=== PATIENT | male | born 1950 | race Caucasian/White ===

== ENCOUNTER 2020-01-13 10:03 | Outpatient (CLI) | payer MEDICARE, SELFPAY ==
--- NOTE | 2020-01-13 11:50 | ECG_ITS ---
Measurements Intervals [place] Rate: 60 P: 5 FL: 161 QRS: -14 QRSD: 68 T: 10 QT: 395 QTc: 396 Interpretive Statements SINUS RHYTHM BORDERLINE T WAVE ABNORMALITY- INFERIOR LEADS BASELINE ARTIFACT- I, II, III, AVR, AVL, AVF, V1-V3 BORDERLINE ECG Electronically Signed On 01-13-2020 12:10:03 CANCELING AND CUTTING CONTROL CLERK by Issac Long D.O.
[2020-01-13 12:29] LABS: Basophils Percent Auto 0.6 % (0.2-1.2); Eosinophils Absolute Auto 0.2 K/mm3 (0-0.3); Eosinophils Percent Auto 2.2 % (0-4.4); Hematocrit 47.5 % (42.0-52.0); Hemoglobin 15.9 g/dL (14.0-18.0); Immature Granulocyte Absolute 0.01 K/mm3 (0.00-0.031); Immature Granulocyte Percent A 0.1 % (0-0.5); Lymphocytes Absolute Auto 1.93 K/mm3 (0.9-3.2); Lymphocytes Percent Auto 28.1 % (18.3-44.2); Mean Corpuscular HGB Conc 33.5 g/dl (32-36); Mean Corpuscular Hemoglobin 31.2 pg (26-34); Mean Corpuscular Volume 93.1 fl (80-100); Mean Platelet Volume 10.6 fl (7.4-10.4); Monocytes Absolute Auto 0.5 K/mm3 (0.1-0.6); Monocytes Percent Auto 7.6 % (2.6-8.5); Neutrophils Absolute Auto 4.2 K/mm3 (1.3-6.7); Neutrophils Percent Auto 61.4 % (45.5-73.1); Platelet Count Result 160 k/mm3 (150-375); Red Cell Distribution Width 12.9 % (11.5-14.5); White Blood Count 6.9 K/mm3 (4.5-10.0)
[2020-01-13 12:30] LABS: Hemoglobin A1C 4.9 % (<5.7)
[2020-01-13 12:31] LABS: Albumin Level 4.5 g/dL (3.5-5.1); Estimated Glomerular Filt Rate 60; Glucose 87 mg/dL (75-110)
[2020-01-13 12:32] LABS: Urine Cotinine NEGATIVE
[2020-01-13 12:40] LABS: Partial Thromboplastin Time 36.2 SECONDS (22.3-36.8)
== END 2020-01-13 10:04 | disposition home or self-care (01) ==
LOC: ANHSURGERY 10:06
PROVIDERS: Anesthesiology; PCP Internal Medicine; Visit Provider Orthopaedic Surgery
DX: M17.0 Bilateral primary osteoarthritis of knee (principal); Z79.01 Long term (current) use of anticoagulants; Z01.818 Encounter for other preprocedural examination
CPT/HCPCS: 36415; 80307; 82040; 82565; 82947; 83036; 85025; 85610; 85730; 86850; 86900; 86901; 87081; 93005

== ENCOUNTER 2020-06-28 09:38 | Outpatient (CLI) | payer MEDICARE, SELFPAY ==
[2020-06-28 11:06] LABS: Basophils Percent Auto 0.3 % (0.2-1.2); Eosinophils Percent Auto 0.2 % (0-4.4); Hematocrit 48.3 % (42.0-52.0); Hemoglobin 15.7 g/dL (14.0-18.0); Immature Granulocyte Absolute 0.03 K/mm3 (0.00-0.031); Immature Granulocyte Percent A 0.5 % (0-0.5); Lymphocytes Absolute Auto 1.65 K/mm3 (0.9-3.2); Lymphocytes Percent Auto 26.7 % (18.3-44.2); Mean Corpuscular HGB Conc 32.5 g/dl (32-36); Mean Corpuscular Hemoglobin 29.8 pg (26-34); Mean Corpuscular Volume 91.7 fl (80-100); Mean Platelet Volume 10.1 fl (7.4-10.4); Monocytes Absolute Auto 0.6 K/mm3 (0.1-0.6); Monocytes Percent Auto 9.5 % (2.6-8.5); Neutrophils Absolute Auto 3.9 K/mm3 (1.3-6.7); Neutrophils Percent Auto 62.8 % (45.5-73.1); Platelet Count Result 150 k/mm3 (150-375); Red Blood Count 5.27 M/mm3 (4.6-6.20); Red Cell Distribution Width 13.5 % (11.5-14.5); White Blood Count 6.2 K/mm3 (4.5-10.0)
[2020-06-28 11:16] LABS: INR 1.7; Prothrombin Time 20.9 Seconds (11.1-14.7); Urine Cotinine NEGATIVE
[2020-06-28 11:17] LABS: Partial Thromboplastin Time 39.6 SECONDS (22.3-36.8)
[2020-06-28 11:19] LABS: Albumin Level 4.3 g/dL (3.5-5.1); Estimated Glomerular Filt Rate 46; Glucose 98 mg/dL (75-110)
[2020-06-28 11:20] LABS: Hemoglobin A1C 5.4 % (<5.7)
== END 2020-06-28 09:39 | disposition home or self-care (01) ==
LOC: ANHSURGERY 09:44
PROVIDERS: PCP Internal Medicine; Visit Provider Orthopaedic Surgery
DX: M17.12 Unilateral primary osteoarthritis, left knee (principal); Z01.818 Encounter for other preprocedural examination
CPT/HCPCS: 80307; 82040; 82565; 82947; 83036; 85025; 85610; 85730; 87081

== ENCOUNTER → 2020-08-11 02:40 | Outpatient (CLI) | payer MEDICARE, SELFPAY ==
[2020-08-11 18:16] LABS: SARS-CoV-2 RNA PCR Negative
== END ==
PROVIDERS: PCP Internal Medicine; Visit Provider Orthopaedic Surgery
DX: Z01.812 Encounter for preprocedural laboratory examination (principal); Z20.822 Contact with and (suspected) exposure to COVID-19
CPT/HCPCS: C9803; U0003; U0005

== ENCOUNTER 2020-08-14 00:35 | Day surgery (SDC) | payer MEDICARE, SELFPAY ==
[2020-01-13 10:31] VITALS: BMI 27.0
[2020-01-13 10:33] VITALS: BP 144/76; PULSE 63; RESP 16; TEMP 36.9; O2SAT 98
[2020-06-28 10:00] VITALS: BMI 27.1
[2020-06-28 10:48] VITALS: BP 142/70; PULSE 67; RESP 16; TEMP 37; O2SAT 98; BMI 27.1
--- NOTE | 2020-08-04 14:37 | PC.NURSE ---
08/04/20 PT STATES NO CHANGE IN HEALTH HX SINCE LAST INTERVIEW ON 06/28/20
[2020-08-14] VITALS (13 sets, daily range): BP systolic 122–159; BP diastolic 73–84; PULSE 68–90; RESP 10–18; TEMP 35.8–36.8; O2SAT 93–100; BMI 27.6
--- NOTE | ~2020-08-14 | XR_ITS ---
EXAMINATION: XR knee LT 2V DATE: 08/14/2020 12:25 INDICATION: Total left knee arthroplasty. Postop. TECHNIQUE: 2 views of left knee were obtained. COMPARISON: Left knee radiographs 08/02/2020 FINDINGS: There is a total left knee arthroplasty with patellar resurfacing in near-anatomic alignmen t. No fracture. There is gas in the knee joint and soft tissues, consistent with recent surgery. Ther e are loose bodies in a Hawley's cyst. IMPRESSION: 1. Total left knee arthroplasty in near-anatomic alignment. Reviewed, dictated and finalized at location A.
[2020-08-14] MEDS: LACTATED RINGERS 1,000 ML 30 ML IV CONT ×2 (08:05→12:09)
[2020-08-14] MEDS: TRANEXAMIC ACID 1,000MG/ISO100 1,000 MG/100 ML BAG 200 MG IVPB (08:15)
[2020-08-14] MEDS: ACETAMINOPHEN 500 MG TABLET 1000 MG PO ×3 (08:19→21:54)
--- NOTE | 2020-08-14 08:19 | WPDANESEPPF ---
Anes - Initial Pre Proc Eval Procedure: Operation Date: 08/14/20 09:30 Proposed Procedures p Left Total Knee Arthroplasty, Right Knee Injection - Jesus Franco MD Date/Time: 08/14/20 08:19 Surgeon: Jesus Franco MD Pre Op Diagnosis: Left Knee OA, Bilateral Knee OA Patient Data Age: 70 Gender: M Height: 1.78 m Weight: 85.8 kg Last Vital Signs Temp 37.0 C 06/28/20 10:48 Pulse 67 06/28/20 10:48 Resp 16 06/28/20 10:48 BP 142/70 H 06/28/20 10:48 Pulse Ox 98 06/28/20 10:48 Allergies Allergy/AdvReac Type Severity Reaction Status Date / Time simvastatin Allergy Unknown Joint Pain Verified 08/14/20 07:45 propranolol AdvReac Unknown Joint pain Verified 08/14/20 07:45 Home Medications Medication Instructions Recorded Confirmed Type omega 4-zlb-els-fish oil 300 1 cap PO DAILY 05/20/19 08/14/20 History mg-1,000 mg capsule acetaminophen 650 mg 650 mg PO Q12H PRN 07/21/19 08/04/20 History tablet,extended release antiarthritic combination no.2 900 900 mg PO DAILY 07/21/19 08/04/20 History mg tablet warfarin 5 mg tablet 7 mg PO DAILY tablet 01/11/20 08/14/20 History ascorbic acid (vitamin C) 1 g PO DAILY 01/13/20 08/14/20 History enoxaparin 40 mg SUBCUT BID 08/14/20 08/14/20 History Laboratory Tests 08/14/20 07:53 PT Pending INR Pending APTT Pending Patient hx anesthesia problems: none Family hx anesthesia problems: none [facility] Past Medical History Medical History Acute embolism and thrombosis of other specified deep vein of right lower extremity (~07/20/18) BMI 26.0-26.9,adult Degenerative arthritis of knee, bilateral Essential tremor (~02/13/16) History of PFTs (~11/21/17) Complete w/post bronchodilator spirometry History of squamous cell carcinoma Hx of pulmonary function tests (~12/22/17) Methacholine Challenge Osteoporosis Pulmonary embolism (~08/24/09) Varicose vein of leg (~12/11/16) Endovenous Laser Therapy Right leg Varicose vein of leg (~01/16/17) Left and Right leg Varicose vein of leg (~02/18/18) Endovenous Laser Therapy Right leg Surgical History Surgical History History of colonoscopy (~03/23/07) History of cystoscopy (~02/14/17) History of foot surgery (~06/14/13) Left hammertoe/bunion repair History of foot surgery (~12/31/13) Left hammertoe repair 4th and 5th digits History of left knee surgery (~11/24/01) Hawley's cyst and tear History of repair of right rotator cuff (~04/27/09) History of ultrasound guided needle biopsy (~10/24/14) Prostate S/P TURP 2020 Status post arthroscopic partial medial meniscectomy (~06/06/09) right knee Status post surgical removal of neoplasm of skin (~02/06/10) Squamous cell CA Left hand Status post surgical removal of neoplasm of skin (~10/17/15) Squamous cell CA Left arm Family History Family History Father , 12/18/1971 Age 48 No problems noted. Mother , 02/17/2010 Age 88 Alzheimer disease Social History Social History Smoking status: Never smoker Additional smoking assessment comments: DENIES ANY FORM OF TOBACCO USE Alcohol intake: current Alcohol use details: FEW DRINKS/YEAR Substance use: never Living arrangements: with family Additional living arrangements comments: - [place] Gender identity (if verbalized by the patient): Male Spiritual care concerns: No Agree to blood products: No Anes - Eval Final PreProcedure Day of Procedure 08/14/20 08:19 Patient weight: overweight Heart: regular rate and rhythm Lungs: clear to auscultation and normal air movement Airway: Mallampati scale class II Neurological: alert and oriented Last oral intake: >/= 8 hours ASA classification: III Emergent: no Anes
[2020-08-14 08:20] LABS: INR 0.9; Prothrombin Time 12.9 Seconds (11.1-14.7)
[2020-08-14 08:21] LABS: Partial Thromboplastin Time 27.3 SECONDS (22.3-36.8)
--- NOTE | 2020-08-14 08:26 | WPDANESPNB ---
Anes - Peripheral Nerve Block Date/Time: 08/14/20 08:26 I have discussed with the patient/family/POA the placement of a peripheral nerve block for post-operative pain management, including associated risks, benefits, complications, and side effects. Alternative methods of post-operative analgesia were detailed. Questions were solicited and answers provided to the satisfaction of the patient/family/POA. Time-Out: A pre-procedural Time-Out was completed immediately before starting the procedure and confirmed: Patient Identification, Site, Procedure, Patient Position and the Availability of Requisite Equipment. Clinical Indications: Acute post-operative pain management requested by the operative surgeon. Nerve Block Insertion Note Anes-nerve block: adductor canal left Patient position: supine Skin prep: chlorhexidine Needle: 22 gauge, stimulating, insulated echogenic needle. Needle length: 80 mm Technique: ultrasound Technique comment: in plane Injectate: bupivacaine 0.5% with epi 5 mcg/ml (30cc) Observations: tolerated well Complications: none Procedure start time:: 915 Procedure end time:: 920
--- NOTE | 2020-08-14 08:54 | WPDHPUPDATE1 ---
History and Physical Update Update Date/Time: 08/14/20 08:54 History and Physical has been reviewed, including an updated exam of the patient. There are NO changes in the patient's condition. Risks, benefits, and alternatives have been discussed and questions answered. Patient agrees to proceed with procedure.
[2020-08-14] MEDS: ceFAZolin 2 GM/D5W 50 ML 2 GM/50 ML BAG IVPB ×2 (09:37→16:23)
[2020-08-14] MEDS: BUPIVACAINE/EPINEPHRINE 0.25% 10 ML VIAL 60 ML INFILTRATE (10:38)
[2020-08-14] MEDS: TRANEXAMIC ACID 1,000 MG/10 ML AMPUL 1000 MG TOPICAL (10:38)
--- NOTE | 2020-08-14 11:12 | SUR.OPER ---
Dr. Franco made aware of 1 hour tourniquet time. An additional 30 minutes added for the procedure
--- NOTE | 2020-08-14 12:10 | P.OP_ITS ---
Procedure Note - Detailed Date of Procedure 08/14/20 Pre-op Diagnosis Bilateral Knee OA Post-op Diagnosis same Procedure Performed Left total knee replacement; injection right knee Surgeon Jesus Franco MD Incident Commander Ara Astorga Anesthesia general and local Indications See H&P Findings See operative note Description of Procedure The patient was identified and proper site identified. In the preop holding area the anesthesia team performed a left sub sartorial block after which the patient was taken to the operating room and transferred to the OR table positioning supine taking care to pad the torso and extremities. After general anesthetic induction and intubation a nonsterile tourniquet was placed high on the left thigh. While this was being done, the right knee was injected intra- articularly with 2 mL of 1% lidocaine and 20 mg of Kenalog without incident using sterile technique. The left lower extremity was prepped and draped in the usual sterile fashion. The extremity was exsanguinated and with the knee flexed tourniquet was inflated to 300 mmHg remaining up for approximately 71 minutes. An anterior midline incision was made and a mid vastus approach was used. Infra and suprapatellar fat pads were excised. Patella was resected leaving 15 mm thickness and prepared for the 34 thin, round three peg component. Using the intramedullary guide the distal femur was cut in the proper orientation for the size 65 femoral component. Using the extramedullary guide the tibia was cut perpendicular to the long axis protecting collateral ligaments and popliteal structures. It was sized to a 71. Flexion and extension gaps were balanced. Trial reduction was undertaken and the weight-bearing line was noted to passed through the center of the joint. Proximal tibia was drilled and punched in the proper orientation for the real component. Trial components were removed. The bone surfaces were washed with pulsatile lavage and dried. The real components were cemented simultaneously. The knee was held in extension and the patella held clamped until the cement had cured. Excess cement was removed from the joint. After trialing it was determined that the 11 mm insert gave full range of motion from 0-120 degrees of flexion and the patella tracked in the femoral groove with no lift-off. After final lavage the joint the real 11, insert was placed and secured with a locking bar. A Betadine and saline wash was placed into the wound and allowed to sit for approximately 3 minutes and then evacuated. Billy was sprinkled both within the joint and over the extensor mechanism once it had been closed. This was for hemostasis. Periarticular tissues were infiltrated with 60 cc of the arthroplasty solution. 1 g of tranexamic acid was left in the wound. The extensor mechanism was repaired with #2 Vicryl suture and 0 looped PDS suture. Subcu was reapproximated with three 0 Monocryl and two 0 strata fix with tissue adhesive for the skin. A sterile dres sing was applied. He tolerated the procedure well, was awakened and extubated, transferred to the bed and was taken to recovery area in stable condition. There were no known intraoperative complications. Perioperative antibiotics were administered. Estimated Blood Loss 150 Tourniquet Time 71 Drains No Packing No Pathology none sent Complications No immediate complications Condition stable Disposition PACU
--- NOTE | 2020-08-14 12:57 | SUR.PHASEI ---
[id number] sbar faxed floor notified
--- NOTE | 2020-08-14 13:52 | ADMGEN ---
This patient, Gómez Cole, was admitted to Medical Room 254-01. Patient/family oriented to hospital policies and general routines including ID bracelet, bed and alarms, visiting hours, pain management, procedures, bathroom and other care routines, personal items, smoking policy, room service/diet, and visiting hours. Information on how to activate the Rapid Response Team has been discussed. Patient/Family are encouraged to report perceived risks to care and to ask questions if they do not understand what they are told or what they should do.
[2020-08-14] MEDS: oxyCODONE HCL (*CRX) 5 MG TAB IR PO ×3 (14:34→21:54)
[2020-08-14] MEDS: SODIUM CHLORIDE 0.9% IV 1,000 ML 125 ML IV CONT (14:34)
[2020-08-14] MEDS: WARFARIN (*PBKC) 5 MG TABLET PO (18:36)
[2020-08-14] MEDS: DOCUSATE SODIUM 100 MG CAPSULE PO (18:36)
[2020-08-14] MEDS: WARFARIN (*PBKC) 2 MG TABLET PO (18:37)
[2020-08-14] MEDS: FAMOTIDINE 20 MG TABLET PO (21:54)
[2020-08-14] MEDS: SENNOSIDES 8.6 MG TABLET 17.2 MG PO (21:54)
[2020-08-15] MEDS: ceFAZolin 2 GM/D5W 50 ML 2 GM/50 ML BAG IVPB ×2 (01:23→08:12)
[2020-08-15] MEDS: oxyCODONE HCL (*CRX) 5 MG TAB IR PO ×3 (01:24→08:11)
[2020-08-15 03:17] VITALS: BP 137/66; PULSE 64; RESP 18; TEMP 36.9; O2SAT 97
[2020-08-15] MEDS: ACETAMINOPHEN 500 MG TABLET 1000 MG PO (05:04)
[2020-08-15 05:44] LABS: INR 0.9; Prothrombin Time 13.2 Seconds (11.1-14.7)
[2020-08-15 07:13] VITALS: BP 140/83; PULSE 74; RESP 18; TEMP 36.8; O2SAT 97
--- NOTE | 2020-08-15 07:23 | PM.PNORT ---
Progress Note: A&P Assessment and Plan (1) Degenerative arthritis of knee, bilateral: Qualifiers: Osteoarthritis type: primary Qualified Code(s): M17.0 - Bilateral primary osteoarthritis of knee Code(s): M17.0 - Bilateral primary osteoarthritis of knee Status: Chronic (2) History of left knee replacement: Code(s): Z96.652 - Presence of left artificial knee joint Status: Acute Assessment and Plan: 70-year-old male postop day one left knee replacement, right knee injection. He has done very well. He will be discharged home today. Instructions reviewed with him in detail. He has a follow-up with me in approximately two weeks. He was instructed to call with any questions prior to follow-up. Time Spent With Patient Time with patient: 15 - 25 minutes Subjective Subjective Date/Time Seen: 08/15/20 07:23 Interval history: This document created with [id number] technology and is subject to screen print operator irregularities. 70-year-old male postop day one left knee replacement, right knee injection. Overall doing well. Uneventful stay overnight. Review of Systems Constitutional: Constitutional: Denies chills and Denies fever(s) Eyes: Eyes: Reports no additional eye complaints ENT: Reports system reviewed and no additional complaints, except as documented Cardiovascular: Cardiovascular: Denies chest pain Respiratory: Respiratory: Reports no additional respiratory complaints Gastrointestinal: Gastrointestinal: Denies abdominal pain Exam Const: General: cooperative, no acute distress and alert Nutritional Appearance: other Orientation/consciousness: patient oriented x3 HENMT: Head: normal to inspection Ears: hearing grossly normal bilaterally Face and sinus: face symmetric Mouth: Yes moist mucous membranes Teeth and gingiva: fair dentition Eyes: Alignment and Position: alignment normal and position normal Sclera: sclerae normal Neck: Neck: normal visual inspection and nontender Chest: Chest palpation & inspection: normal inspection of the chest Resp: Effort & Inspection: normal respiratory effort and able to speak in complete sentences GI: Inspection: other (Nondistended) Skin: General skin exam: normal color Rashes: no rashes Neuro: General: patient oriented x3 Cognition (Neuro): normal cognition Speech: normal speech Extrem: General: normal to inspection and other Other: Exam of the left knee demonstrates try incision. Virtually no swelling in the knee. Grossly motor and sensory function is intact to the left lower extremity. Calves negative. Right knee exam unremarkable. Injection site unremarkable. Psych: Appearance: grossly normal Mental Status: mental status grossly normal Objective Data Vital Signs Vital Signs: Vital Signs - 24 hr 08/14/20 07:35 08/14/20 12:15 08/14/20 12:30 Temperature 97.4 F L 97.5 F L Pulse Rate 68 88 90 Respiratory Rate 16 10 L 13 Blood Pressure 139/79 122/75 133/80 Pulse Oximetry 100 97 98 08/14/20 12:45 08/14/20 12:58 08/14/20 13:15 Temperature Pulse Rate 90 84 81 Respiratory Rate 12 14 16 Blood Pressure 141/77 H 159/73 H 143/80 H Pulse Oximetry 98 93 95 08/14/20 13:30 08/14/20 13:32 08/14/20 13:47 Temperature 96.4 F L 96.6 F L Pulse Rate 78 74 76 Respiratory Rate 15 16 16 Blood Pressure 139/84 147/77 H 144/83 H Pulse Oximetry 93 94 95 08/14/20 14:17 08/14/20 15:17 08/14/20 18:00 Temperature 96.4 F L 96.9 F L 96.4 F L Pulse Rate 78 76 72 Respiratory Rate 16 16 16 Blood Pressure 148/79 H 136/74 144/80 H Pulse Oximetry 94 96 95 08/14/20 23:14 08/15/20 03:17 08/15/20 07:13 Temperature 98.3 F 98.4 F 98.2 F Pulse Rate 78 64 74 Respiratory Rate 18 18 18 Blood Pressure 129/74 137/66 140/83 Pulse Oximetry 97 97 97 Intake/Output Intake/Output: Intake & Output 08/12/20 08/13/20 08/14/20 08/15/20 23:59 23:59 23:59 23:59 Intake Total 2019 1600 / 1600 Output Total 745 /
--- NOTE | 2020-08-15 07:26 | PM.DS ---
DS: Admitting Diagnosis Admitting Diagnosis Admitting Diagnosis: Bilateral knee osteoarthritis DS: Discharge Diagnosis Discharge Diagnosis (1) History of left knee replacement: Code(s): Z96.652 - Presence of left artificial knee joint Status: Acute (2) Degenerative arthritis of knee, bilateral: Qualifiers: Osteoarthritis type: primary Qualified Code(s): M17.0 - Bilateral primary osteoarthritis of knee Code(s): M17.0 - Bilateral primary osteoarthritis of knee Status: Chronic Assessment and Plan: Plan discharge home today. Outpatient therapy begins in one week. DS: Summary Hospital Course Reason for hospitalization: Observation following outpatient procedure Hospital Course: Patient was admitted to the floor. Began therapy, he did very well and is going to be discharged home postop day one Status at Discharge Functional status at discharge: uses cane/walker Time Spent with Patient Time attestation: Total time spent providing and/or coordinating discharge services: Time spent: Less than 30 minutes Exam Const: General: cooperative, no acute distress and alert Nutritional Appearance: other Orientation/consciousness: patient oriented x3 HENMT: Head: normal to inspection Ears: hearing grossly normal bilaterally Face and sinus: face symmetric Mouth: Yes moist mucous membranes Teeth and gingiva: fair dentition Eyes: Alignment and Position: alignment normal and position normal Sclera: sclerae normal Neck: Neck: normal visual inspection and nontender Chest: Chest palpation & inspection: normal inspection of the chest Resp: Effort & Inspection: normal respiratory effort and able to speak in complete sentences GI: Inspection: other (Nondistended) Skin: General skin exam: normal color Rashes: no rashes Neuro: General: patient oriented x3 Cognition (Neuro): normal cognition Speech: normal speech Extrem: General: normal to inspection and other Other: Exam of the left knee demonstrates try incision. Virtually no swelling in the knee. Grossly motor and sensory function is intact to the left lower extremity. Calves negative. Right knee exam unremarkable. Injection site unremarkable. Psych: Appearance: grossly normal Mental Status: mental status grossly normal DS: Data Data Completed and Pending Labs on day of discharge: Labs from last 24 hours 08/15/20 08/14/20 05:18 07:53 PT 13.2 12.9 INR 0.9 0.9 APTT 27.3 Discharge Plan Discharge Patient Disposition: Home, Self-Care Discharge Instructions: 3 times daily for 20 minutes each time, reclining in bed with ice packs over the incision and a pillow underneath the calf of the affected leg, not under the knee. Your wound is glued so it is okay to get into the shower and get the wound wet in two days. Be sure to read through all the information that came from a my office and the hospital. Most of the answers you will need can be found that material. Call the office with any questions that you cannot find answers to, or concerns you may have. After the Xarelto is completed, start taking one coated 325 mg aspirin daily and do this for four more weeks. Please call [facility] at as soon as possible to verify your follow-up appointment to be seen in 2 weeks. Also, call the office with any orthopedic/surgical related questions prior to follow-up. Be sure to get up and move around several times daily but do not overdo it. Take the arthritis formula Tylenol 650 mg tablet on an 8 hour schedule. A good 8 hour schedule is: 6:00 a.m., 2:00 p.m., 10:00 p.m. you may take the prescribed pain medication along with the Tylenol; it is not to be taken instead of the Tylenol. I would like for you to take the Tylenol on a schedule for 2-3 weeks. Be sure to use the Lovenox as prescribed until completed. You restarted on year her regular blood thinning medication in the hospital. Stand Alone Forms:
[2020-08-15] MEDS: DOCUSATE SODIUM 100 MG CAPSULE PO (08:11)
[2020-08-15] MEDS: OMEGA 3 POLYUNSAT FATTY ACIDS 1 GM CAP PO (08:12)
[2020-08-15] MEDS: FAMOTIDINE 20 MG TABLET PO (08:12)
[2020-08-15 10:41] VITALS: BP 127/70; PULSE 76; RESP 18; TEMP 36.2; O2SAT 98
--- NOTE | 2020-08-15 12:23 | WPDANESPN ---
Anes - Prog Note Post-Op Date/Time: 08/15/20 12:23 Cardiovascular status: normal Respiratory status: normal Airway patency: baseline Mental status: baseline Post-Op hydration status: normal Vital Signs: Last Vital Signs Temp 36.2 C L 08/15/20 10:41 Pulse 76 08/15/20 10:41 Resp 18 08/15/20 10:41 BP 127/70 08/15/20 10:41 Pulse Ox 98 08/15/20 10:41 Pain Score (VAS): 4/10. Patient resting up to bedside chair at time of assessment, appears comfortable. PCT at bedside. I/O: Intake & Output 08/14/20 08/15/20 08/15/20 23:59 07:59 15:59 Intake Total 1370 1600 480 Output Total 700 1830 Balance 670 -230 480 08/15/20 05:18 PT 13.2 INR 0.9 Post-procedural complaints: none Patient Feedback: Patient satisfied with anesthetic care.
== END 2020-08-15 11:00 | disposition home or self-care (01) ==
LOC: ANHSURGERY 07:13 → ANH2MED 13:36
PROVIDERS: PCP Internal Medicine; Visit Provider Orthopaedic Surgery
PROC: (CPT 27447; principal; 2020-08-14 09:30)
DX: M17.0 Bilateral primary osteoarthritis of knee (principal); G89.18 Other acute postprocedural pain; G25.0 Essential tremor; M81.0 Age-related osteoporosis without current pathological fracture; Z79.01 Long term (current) use of anticoagulants; Z86.718 Personal history of other venous thrombosis and embolism; Z86.711 Personal history of pulmonary embolism
CPT/HCPCS: 27447; 20610; 64447; 36415; 73560; 85610; 85730; 97110; 97116; 97161; 97165; 97530; 97535; A9270; C1713; C1776; J0690; J1100; J1170; J2250; J2405; J2704; J3010; J3301; J3370; J7030; J7120

== ENCOUNTER 2020-09-14 10:00 | Outpatient (RCR) | payer MEDICARE, SELFPAY ==
--- NOTE | 2020-08-21 10:26 | PTOPEVAL ---
PHYSICAL THERAPY EVALUATION AND PLAN OF CARE Thank you for referring Gómez Cole to [facility].? The patient is scheduled to be seen for therapy? 2x/week for 4-6 weeks. Please review, sign, date and return this plan of care PANKAJ. I agree with and certify that the following plan of care is medically necessary. Referring Physician Date Attending Provider: Jesus Franco MD Evaluation Hx Other Neurological Disorders Yes: ESSENTIAL TREMORS U.E.- NO MEDS Cardiovascular History Hx Deep Vein Thrombosis Yes: HX DVT/PE-2009, 2ND DVT- 2018 Hx Vascular Surgery Yes: 2016, 2017,2019 ENDOVENOUS LASER THERAPY FOR VARICOSE VEINS Hx Other Cardiac Disorders Yes: NO STEWARD/STEWARDESS WINE, ACTIVE- BUILDING ON A ROOM AT HOUSE Respiratory History Hx Pulmonary Embolism Yes: 2009 Gastrointestinal History Hx Gastrointestinal Disorders No Significant History Genitourinary History Hx Other Genitourinary Disorders Yes: HX PROSTATE BX. MAY 18, 2020 TURP AT [facility] Musculoskeletal History Hx Arthritis Yes: OA BILAT KNEES Hx Joint Replacement Yes: left TKA 08-14-20 Hx Orthopedic Surgery Yes: RT SHOULDER CUFF REPAIR 2009, RT KNEE ARTHROSCOPY 2009 ,LT KNEE CONKLIN'S CYST Hx Other Musculoskeletal Disorders Yes: LT HAMMER TOE SURGERIES/ BUNIONECTOMY. OA LT KNEE Hematological History Hx Other Hematological Disorders Yes: COUMADIN FOR HX DVT'S. MANDAEN Endocrine History Hx Endocrine Disorders No Significant History HEENT History Hx Other HEENT Disorders Yes: READING GLASSES Integumentary History Hx Excision Skin Lesion Yes: SQUAMOUS CELL CA-LT HAND Other History Hx Cancer Yes: SQUAMOUS CELL CA Diagnosis left TKA Onset 08/14/2020 Subjective Information Gómez is 1 week s/p L TKA. He Query Text:As Reported By Patient/ reports a significant amount Family of pain. He also reports that he is icing the knee 3-4x/day and he does his exercises as instructed. States that he cannot hold his urine at all and has incontinence since they removed the catheter after surgery. I instructed him to call surgeon's office regarding these symptoms. Prior Level of Function Home Setting Home Type Single Level Environmental Barri
--- NOTE | 2020-09-14 10:39 | PTOPEVAL ---
PHYSICAL THERAPY DISCHARGE NOTE Thank you for referring Gómez Cole to [facility]. Please review, sign, date and return this plan of care PANKAJ. I agree with and certify that the following plan of care is medically necessary. Referring Physician Date Attending Provider: Jesus Franco MD Diagnosis left TKA Onset 08/14/2020 Subjective Information Gómez is 4 week s/p L TKA. He Query Text:As Reported By Patient/ reports pain is doing well. 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 Has not started mowing the lawn yet, but feels like he could. Self Report Pain Assessment Left Knee(s) Reported Pain Level 1 Pain Description Tightness Pain Score Pain Score 1: Self Report Interventions Used Interventions Used By Clinicians Exercise Other Alleviating Interventions patient is to ice at home Lower Extremity Range of Motion Knee Range of Motion Left Knee Flexion Range of Motion - Active 92 Knee Extension Range of Motion - Active 0 Query Text: Lower Extremity Muscle Strength Testing Hip Strength Left Hip Flexion Strength 5 Normal Hip Extension Strength 4 Good Hip Abduction Strength 4 Good Knee Strength Left Knee Flexion Strength 5 Normal Knee Extension Strength 4+ Good + Gait Assessment Gait Assessment Ambulation Assistive Devices None Weight Bearing Status - Left Full Weight Bearing Status - Right Full Maintains Weight Bearing Status Yes Ambulation Distance 150 Query Text:(Feet) Ambulation Speed (feet/second) 2.5 Ambulation Destination In Gym Ambulation Ability Independent Stair Climbing Assessment Stair Climbing Assessment Stair Climbing Assistive Devices None Weight Bearing Status - Left Full Weight Bearing Status - Right Full Maintains Weight Bearing Status Yes Number of Steps Climbed (Steps) 2 Number of Repetitions (Repetitions) 4 Technique Alternating Steps Stair Climbing Direction Both Up and Down Stair Climbing Ability Independent General Exercise General Exercises Side Left Exercise Location knee Exercise Type Active,Active/Assistive, Stretching Exercise Description -prone knee flexion Query Text:Record Sets, Reps, -prone knee flexion stretch Resistance, and Position - Bike Exercise Bike Extremity Bilateral Lower Type of Bike Stationary
== END 2020-11-06 11:15 | disposition home or self-care (01) ==
LOC: ANHPT 10:00
PROVIDERS: PCP Internal Medicine; Visit Provider Orthopaedic Surgery
DX: Z47.1 Aftercare following joint replacement surgery (principal); Z96.652 Presence of left artificial knee joint
CPT/HCPCS: 97014; 97110; 97140; 97162; G0283

== ENCOUNTER 2023-04-08 08:00 | Outpatient (RCR) | payer MEDICARE, SELFPAY ==
--- NOTE | 2023-03-24 13:25 | OPREHPOC ---
Outpatient Therapy Plan of Care This is a Multidisciplinary Plan of Care that may contain components documented by all disciplines (PT, OT, and ST.) PT Problem 1 PT Problem #1 Knowledge Deficit PT Goal 1 Goal 1* indep with HEP 2* correct body mechanics and posture with lifting PT Problem 2 PT Problem #2 Pain PT Goal 1 Goal 1* pt able to state 2 methods to decrease his back pain PT Problem 3 PT Problem #3 Impaired Flexibility PT Goal 1 Goal increase flexibility to decrease strain to lumbar spine: anterior hip/quad length with prone knee flexion 1* R 105' 2* L 105' hamstring length with supine SLR 3* R 80 4* L 80' PT Problem 4 PT Problem #4 Impaired Strength PT Goal 1 Goal increase trunk strength to improve position of spine 1* pt perform sitting ball exercies x 10 reps with good stability single leg standing 20 seconds with good stability 2* R 3* L
--- NOTE | 2023-03-24 13:25 | PTOPEVAL1 ---
Assessment and note entered by Sonia Thomas PT Evaluation Information Assessment Status Evaluation Diagnosis thoracic and lumbar pain Onset Dec 2022 Subjective Information gradual increase in pain in back,without trauma or injury to back; have been doing more home remodeling projects with his grandson; Oswestry self assessment 4% limitation. Xray- at another facility; pt did not know results; had MRI of his head due to static constantly in head and back--was told it was arthritis Had CT scan of kidney- not have retults yet. Activity; retired- physical labor, lifting, remodeling homes; is able to do all home and self care tasks; GOAL: find out what is going on with his back; want to know what it is causing his pain; Reported Pain Level Pain Score Self Report Additional Pain Score Comments pain range 2-3/10 in the past week; knot in back; increase pain- cannot identify any thing decrease pain- cannot identify any thing; has put muscle cream on his back is able to sleep through the night without awakening due to pain soak in the hot tub every morning--move arms, legs and run jets on the back; also have pain in R knee, if stand too long knee hurts/ OA knee. Assessment PT Clinical Summary Gómez has the diagnosis of thoracic and lumbar pain. He reports gradual increase with doing more physical work with remodeling his grandson's home. Stated pain is always the same, no matter what he does, it does not really change. He is able to perform all of his home and self care activities. Oswestry self assessment score of 4% limitation in activity level. With the evaluation: the testing did not elicit an increase or cause any pain with the movements; his flexibility of trunk and hip is WNL, except anterior hip/quads, slight tightness of hamstrings and trunk extension; good LE strength; posture of flat spine with forward head; there are moderate spasms over paraspinals.
--- NOTE | 2023-04-08 08:45 | PTOPDC ---
Assessment and note entered by Sonia Thomas, PT Discharge Information Assessment Status Discharge Diagnosis thoracic and lumbar pain Onset Dec 2022 Subjective Information feeling the same, therapy was good, but pain the same, has not changed; saw dr yesterday, going to get injections soon-- scheduled at dr office; kidney tests were all OK; saw nurse anesthetist- scheduled to have a stress test and 2 more tests soon; annual prostate dr said things were OK; will continue to work on the exercises at home; agree to d/c therapy. Reported Pain Level Pain Score Self Report Additional Pain Score Comments pain range in the past week: 1-3/10; pressure in R low back; increase pain: when driving 10-15 minutes; decrease pain: back brace- use when driving; put pain patch over that spot; soak in hot tub; R knee pain- getting injections, need to have TKR; Assessment PT Clinical Summary Gómez has received 5 PT sessions. Compared to the initial eval; pain rating from 2-3/10 to 1-3/10; pain continues to be located R lower thoracic and upper lumbar; sitting is the only activity he reports that increases his pain, was not able to elicit pain with movements during therapy session; slight increase in R and L hamstring and anterior-hip/quad flexibility; education completed for HEP and body mechanics with lifting. He reports using a back brace to help his pain. The goals were partially met. Discharge PT services. He is to continue with the HEP and monitoring his back position/posture. Plan of Care PT Services Indicated No
== END 2023-06-09 11:18 | disposition home or self-care (01) ==
LOC: ANHPT 08:00
PROVIDERS: PCP Internal Medicine
DX: M54.14 Radiculopathy, thoracic region (principal); M54.16 Radiculopathy, lumbar region
CPT/HCPCS: 97110; 97112; 97140; 97161; 97530

== ENCOUNTER 2023-09-29 08:45 | Outpatient (RCR) | payer MEDICARE, SELFPAY ==
[2023-07-04 09:43] VITALS: PULSE 73
== END 2023-10-01 10:49 | disposition home or self-care (01) ==
LOC: ANHCPREHAB 08:45
PROVIDERS: PCP Internal Medicine; Visit Provider Internal Medicine Cardiovascular Disease
DX: Z95.5 Presence of coronary angioplasty implant and graft (principal)
CPT/HCPCS: 93798